=== PATIENT | female | born 2000 | race Caucasian/White ===

== ENCOUNTER 2020-04-01 06:48 | Outpatient (NON) | payer OTHER, SELFPAY ==
[2020-04-01 23:07] LABS: SARS-CoV-2 RNA PCR Negative
== END 2020-04-01 06:49 ==
PROVIDERS: PCP Pediatrics; Visit Provider Pediatrics
DX: Z02.0 Encounter for examination for admission to educational institution (principal); Z11.59 Encounter for screening for other viral diseases
CPT/HCPCS: 87635; C9803; U0003